=== PATIENT | female | born 1960 | race Caucasian/White ===

== ENCOUNTER 2017-04-13 14:20 | Emergency (ER) | payer OTHER ==
[~2017-04-13] VITALS: Ht 149.9 cm; Wt 48.1 kg
--- NOTE | 2017-04-13 14:29 | ED General ---
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 She told the officers to bring her out here because she believes she was having a stroke. She checks in stating that she is having spasms to both of her hands and feels very anxious. Asked why she feels anxious she states "I have a piece of shit son". States this began earlier this morning and the more she thought about her symptoms the worse they got. Timing/Duration: 1-3 Hours Severity: Moderate Allergies and Home Medications Allergies Coded Allergies: No Known Drug Allergies (Unverified , 04/13/17) Home Medications Amlodipine Besylate 10 Mg Tablet, #90 (Reported) Constitutional: see HPI EENTM: see HPI Respiratory: no symptoms reported Cardiovascular: no symptoms reported Genitourinary: no symptoms reported Musculoskeletal: no symptoms reported Skin: no symptoms reported Psychiatric/Neurological: See HPI, Anxiety Hematologic/Lymphatic: No Symptoms Reported Physical Exam Vital Signs Vital Sign - Last 12Hours 04/13/17 14:20 Temp 99.0 Pulse 134 Resp 18 B/P (MAP) 159/84 Pulse Ox 97 O2 Delivery Room Air Capillary Refill : General Appearance: No Apparent Distress, WD/WN, Anxious Eyes: Bilateral Eye EOMI, Bilateral Eye Normal Inspection, Bilateral Eye PERRL HEENT: PERRL/EOMI, TMs Normal Neck: Full Range of Motion, Normal Inspection Respiratory: No Accessory Muscle Use, No Respiratory Distress Cardiovascular: Normal Peripheral Pulses, Tachycardia (heart rate 130) Gastrointestinal: Non Tender, Soft Extremity: Normal Capillary Refill, Normal Inspection Neurologic/Psychiatric: Alert, Oriented x3, No Motor/Sensory Deficits Skin: Normal Color, Warm/Dry Progress/Results/Core Measures Results/Orders Lab Results Laboratory Tests Test 04/13/17 14:39 04/13/17 14:47 Range/Units White Blood Count 11.2 H 4.3-11.0 10^3/uL Red Blood Count 4.61 4.35-5.85 10^6/uL Hemoglobin 15.4 11.5-16.0 G/DL Hematocrit 44 35-52 % Mean Corpuscular Volume 96 80-99 FL Mean Corpuscular Hemoglobin 33 25-34 PG Mean Corpuscular Hemoglobin Concent 35 32-36 G/DL Red Cell Distribution Width 12.3 10.0-14.5 % Platelet Count 271 130-400 10^3/uL Mean Platelet Volume 10.0 7.4-10.4 FL Neutrophils (%) (Auto) 56 42-75 % Lymphocytes (%) (Auto) 34 12-44 % Monocytes (%) (Auto) 9 0-12 % Eosinophils (%) (Auto) 1 0-10 % Basophils (%) (Auto) 1 0-10 % Neutrophils # (Auto) 6.3 1.8-7.8 X 10^3 Lymphocytes # (Auto) 3.8 1.0-4.0 X 10^3 Monocytes # (Auto) 1.0 0.0-1.0 X 10^3 Eosinophils # (Auto) 0.1 0.0-0.3 10^3/uL Basophils # (Auto) 0.1 0.0-0.1 10^3/uL Sodium Level 142 135-145 MMOL/L Potassium Level 3.2 L 3.6-5.0 MMOL/L Chloride Level 102 98-107 MMOL/L Carbon Dioxide Level 23 21-32 MMOL/L Anion Gap 17 H 5-14 MMOL/L Blood Urea Nitrogen 8 7-18 MG/DL Creatinine 0.78 0.60-1.30 MG/DL Estimat Glomerular Filtration Rate > 60 BUN/Creatinine Ratio 10 Glucose Level 129 H 70-105 MG/DL Calcium Level 10.1 8.5-10.1 MG/DL Total Bilirubin 0.7 0.1-1.0 MG/DL Aspartate Amino Transf (AST/SGOT) 22 5-34 U/L Alanine Aminotransferase (ALT/SGPT) 8 0-55 U/L Alkaline Phosphatase 81 40-136 U/L Total Protein 8.0 6.4-8.2 G/DL Albumin 4.7 H 3.2-4.5 G/DL Urine Color YELLOW Urine Clarity CLEAR Urine pH 6.5 5-9 Urine Specific [place] 1.015 L 1.016-1.022 Urine Protein 2+ H NEGATIVE Urine Glucose (UA) NEGATIVE NEGATIVE Urine Ketones 4+ H NEGATIVE Urine Nitrite NEGATIVE NEGATIVE Urine Bilirubin NEGATIVE NEGATIVE Urine Urobilinogen NORMAL NORMAL MG/DL Urine Leukocyte Esterase 1+ H NEGATIVE Urine RBC (Auto) 1+ H NEGATIVE Urine RBC 0-2 /HPF Urine WBC 0-2 /HPF Urine Squamous Epithelial Cells 5-10 /HPF Urine Crystals NONE /LPF Urine Bacteria NONE /HPF Urine Casts NONE /LPF Urine Mucus NEGATIVE /LPF Urine Culture Indicated NO My Orders Orders - MARTÍN BARROS APRN Cbc With Automated Diff (04/13/17 14:26) Comprehensive Metabolic Panel (04/13/17 14:26) Ua Culture If Indicated (04/13/17 14:26) Alprazolam Tablet (Xanax Tablet) (04/13/17 14:30) Thyroid Stimulating Hormone (04/13/17 14:29) Vital Signs/I&O Vital Sign - Last 12Hours 04/13/17 14:20 Temp 99.0 Pulse 134 Resp 18 B/P (MAP) 159/84 Pulse Ox 97 O2 Delivery Room Air Departure Impression Impression: Primary Impression: Anxiety Additional Impression: Hyperventilation syndrome Disposition: HOME, SELF-CARE (I'm just) Condition: Stable Departure-Patient Inst. Decision time for Depature: 15:15 Referrals: CLINT STEVEN DO (PCP) Primary Care Physician ALEJANDRO DIAZ (Family) Primary Care Physician Patient Instructions: Anxiety, Adult (DC) Add. Discharge Instructions: Use the anxiety medication as needed. Follow-up with your doctor next week for recheck. Return to ER for any worsening or recurrent symptoms Scripts Lorazepam (Lorazepam) 0.5 Mg Tablet 0.5 MG PO BID Y for ANXIETY, #10 TAB Prov: MARTÍN BARROS APRN 04/13/17 MARTÍN BARROS APRN April 13, 2017 14:29
[2017-04-13] MEDS ORDERED: ALPRAZolam 0.5 MG (XANAX) TAB PO SCH (14:30)
[2017-04-13] MEDS ORDERED: AMLO10TA2 (14:38)
[2017-04-13 14:47] LABS: BASOPHILS # (AUTO) 0.1 10^3/uL (0.0-0.1); BASOPHILS % (AUTO) 1 % (0-10); EOSINOPHILS # (AUTO) 0.1 10^3/uL (0.0-0.3); EOSINOPHILS % (AUTO) 1 % (0-10); LYMPHOCYTES # (AUTO) 3.8 X 10^3 (1.0-4.0); LYMPHOCYTES % (AUTO) 34 % (12-44); MEAN CORPUSCULAR HEMOGLOBIN 33 PG (25-34); MEAN CORPUSCULAR HGB CONC 35 G/DL (32-36); MEAN CORPUSCULAR VOLUME 96 FL (80-99); MONOCYTES % (AUTO) 9 % (0-12); NEUTROPHILS # (AUTO) 6.3 X 10^3 (1.8-7.8); NEUTROPHILS % (AUTO) 56 % (42-75); PLATELET COUNT 271 10^3/uL (130-400); RED BLOOD COUNT 4.61 10^6/uL (4.35-5.85); RED CELL DISTRIBUTION WIDTH 12.3 % (10.0-14.5); WHITE BLOOD COUNT 11.2 10^3/uL (4.3-11.0)
[2017-04-13 14:57] LABS: BILIRUBIN,URINE NEGATIVE (NEGATIVE); KETONES,URINE 4+ (NEGATIVE); LEUKOCYTE ESTERASE ,URINE 1+ (NEGATIVE); NITRITE,URINE NEGATIVE (NEGATIVE); PH,URINE 6.5 (5-9); PROTEIN,URINE 2+ (NEGATIVE); UROBILINOGEN,URINE NORMAL (NORMAL)
[2017-04-13 15:04] LABS: ALANINE AMINOTRANSFERASE 8 U/L (0-55); ALBUMIN 4.7 G/DL (3.2-4.5); ANION GAP 17 MMOL/L (5-14); ASPARTATE AMINO TRANSFERASE 22 U/L (5-34); BILIRUBIN,TOTAL 0.7 MG/DL (0.1-1.0); BLOOD UREA NITROGEN 8 MG/DL (7-18); BUN/CREATININE RATIO 10; CALCIUM 10.1 MG/DL (8.5-10.1); CARBON DIOXIDE 23 MMOL/L (21-32); CHLORIDE 102 MMOL/L (98-107); CREATININE SERUM 0.78 MG/DL (0.60-1.30); GFR ESTIMATED > 60; GLUCOSE 129 MG/DL (70-105); POTASSIUM 3.2 MMOL/L (3.6-5.0); SODIUM 142 MMOL/L (135-145)
[2017-04-13 15:12] LABS: WBC,URINE 0-2 /HPF
[2017-04-13] MEDS ORDERED: LORA0.5T PO (15:16)
[2017-04-13 15:24] LABS: THYROID STIMULATING HORMONE 1.52 UIU/ML (0.35-4.94)
[2017-04-13] MEDS ORDERED: KCL 10 MEQ TAB (MICRO K) PO ONE (15:30)
[2017-04-13 15:46] VITALS: BP 129/82
== END 2017-04-13 15:46 | disposition home or self-care (01) ==
LOC: EDUNIT# 14:20 → ER 14:21
DX: F41.9 Anxiety disorder, unspecified (principal); F45.8 Other somatoform disorders
CPT/HCPCS: 36415; 80053; 81000; 84443; 85025; 99283

== ENCOUNTER → 2023-01-22 | Outpatient (CLI) | payer OTHER ==
[~2023-01-22] MED LIST: AMLO-251; LORA0.5T PO
--- NOTE | 2023-01-22 16:49 | Diagnostic Imaging Report ---
MRI LT LOWER EXT JOINT W/O TECHNIQUE: Multiplanar, multisequence MR imaging of the left knee was performed without contrast. COMPARISON: None available. INDICATION: Knee pain after injury FINDINGS: MENISCI Medial meniscus: Horizontal cleavage tear is present in the posterior horn and body of the medial meniscus contacting the undersurface. Lateral meniscus: Normal. LIGAMENTS ACL: Intact. PCL: Intact. MCL: Intact. LCL: The lateral collateral ligamentous complex is intact. EXTENSOR MECHANISM The extensor mechanism is intact. CARTILAGE Medial compartment: Medial compartment articular cartilage is well preserved without focal high-grade chondromalacia. Lateral compartment: The lateral compartment articular cartilage is preserved without high-grade chondromalacia. Patellofemoral compartment: Low-grade partial-thickness chondromalacia involves less than 50% thickness of the lateral patella facet. Trochlear cartilage is normal. BONE Bandlike area of edema in the periphery medial femoral condyle is likely due to area of bone contusion. No macroscopic fracture line is present. SOFT TISSUE No knee effusion or Doshi's cyst. IMPRESSION: 1. Horizontal cleavage tear in the body and posterior horn of the medial meniscus. 2. Bone contusion in the periphery of the medial femoral condyle. 3. 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 Articular cartilage is otherwise well preserved. Dictated by: Dictated on workstation # [id number]
== END ==
LOC: RAD 14:00
PROVIDERS: ATTEND Nurse Practitioner Family
DX: S83.207A Unspecified tear of unspecified meniscus, current injury, left knee, initial encounter (principal); S80.02XA Contusion of left knee, initial encounter; M94.262 Chondromalacia, left knee
CPT/HCPCS: 73721